=== PATIENT | female | born 1985 | race Caucasian/White ===

== ENCOUNTER 2016-04-05 21:15 | Inpatient (IN) | payer OTHER ==
--- NOTE | 2016-04-05 22:43 | US ---
EXAMINATION TYPE: US OB >= 14 wk fetus DATE OF EXAM: 04/05/2016 10:19 PM COMPARISON: None CLINICAL HISTORY: unknown age, no care TECHNIQUE: Transabdominal (TA) GESTATIONAL AGE / DATING Physician Established: Not established Dates by LMP: Unknown Dates by First Scan: No previous Dates by Current Scan: (36 weeks/3 days) EDC: 04/30/2016 SURVEY IUP: Single PLACENTA: Anterior PREVIA: No Previa VONNIE: 2.1 cm Oligohydramnios CERVICAL LENGTH (transabdominal: norm > 3.0cm): Unable to visualize cervix on this exam due to position BIOMETRY PRESENTATION: Vertex LIE: Longitudinal BPD: 9.2 cm 37 weeks / 4 days HC: 32.7 cm 37 weeks / 1 days AC: 33.4 cm 37 weeks / 3 days FL: 7.0 cm 35 weeks / 6 days ESTIMATED WEIGHT IN GRAMS: 3092 grams ESTIMATED WEIGHT IN LBS/OZS: 6 lbs. 13 oz. HC/AC: 0.98 Normal FL/AC: 20.92 Normal HEART RATE: 136 bpm RHYTHM: Normal TECHNOLOGIST IMPRESSION: Viable IUP with an SHAYLEE of 04/30/2016. Oligohydramnios IMPRESSION: Evidence of single live intrauterine of estimated gestational age of 36 weeks and 3 days wi th SHAYLEE of 04/30/2016. heart rate is 1 36 bpm. THERE IS OLIGOHYDRAMNIOS WITH VONNIE OF 2.16. Cervix is not well visualized. Vertex presentation. A phone report is given to Christen the nurse on the floor at the time of the dictation.
[2016-04-05 22:44] LABS: Basophils # (A) 0.1 k/uL (0-0.2); Basophils % (A) 0 %; CH 28.9; CHCM 32.6; Eosinophils # (A) 0.2 k/uL (0-0.7); Eosinophils % (A) 2 %; HCT 29.9 % (34.0-46.0); HDW 3.07; HGB 9.7 gm/dL (11.4-16.0); Luc # (Auto) 0.33; Luc % (Auto) 3; Lymphocytes # (A) 2.2 k/uL (1.0-4.8); Lymphocytes % (A) 20 %; MCH 28.8 pg (25.0-35.0); MCHC 32.4 g/dL (31.0-37.0); MCV 89.1 fL (80.0-100.0); Mean Platelet Volume 7.3; Monocytes # (A) 0.6 k/uL (0-1.0); Monocytes % (A) 5 %; Neutrophils # (A) 7.6 k/uL (1.3-7.7); Neutrophils % (A) 69 %; RBC 3.36 m/uL (3.80-5.40); RDW 13.9 % (11.5-15.5); WBC 10.9 k/uL (3.8-10.6)
[2016-04-05] MEDS ORDERED: OXYTOCIN 10 UNIT/ML 1 ML VIAL IM PRN (22:54)
[2016-04-05] MEDS ORDERED: TERBUTALINE 1 MG/ML VIAL SQ PRN (22:54)
[2016-04-05] MEDS ORDERED: METHYLERGONOVINE 0.2 MG/ML 1 ML AMP IM PRN (22:54)
[2016-04-05] MEDS ORDERED: LIDOCAINE 1% (PF) 10 MG/ML (30 ML SDV) SQ PRN (22:54)
[2016-04-05] MEDS ORDERED: CARBOPROST TROMETHAMINE 250 MCG/ML 1 ML AMP IM PRN (22:54)
[2016-04-05] MEDS ORDERED: AMPICILLIN 2,000 MG in SODIUM CHLORIDE 0.9% 100 ML IVPB STA (22:54)
[2016-04-05] MEDS: LACTATED RINGERS 1,000 ML IV SCH ×2 (23:11→23:46)
[2016-04-05] MEDS ORDERED: fentaNYL (PF) 50 MCG/ML 5 ML AMP ONE (23:25)
[2016-04-05] MEDS ORDERED: BUPIVACAINE (PF) 0.25% 30 ML VIAL ONE (23:25)
[2016-04-05] MEDS ORDERED: SODIUM CHLORIDE 0.9% 100 ML BAG ONE (23:25)
--- NOTE | 2016-04-05 23:27 | P.HPOB ---
History of Present Illness H&P Date: 04/05/16 Chief Complaint: Pain and This patient is a 30-year-old 5 para 1 female with no care who presents to labor and delivery with complaints of pain. Patient states that basically she was in denial of her and did not seek any care. Patient states that she's been taking [place] for a diagnosis of endometriosis by Dr. Adrian. I asked her if the physician new if she was that was prescribing this medication, and she states that she did not tell the physician and basically just called in to get a prescription. This physician apparently is done 2 laparoscopies on the patient and diagnosed her with endometriosis is given her pain medications for this treatment. Patient does not want this and has no intention of keeping the baby at this time. She does have a history of a previous term vaginal delivery that I have no records. Patient states that baby was 7 lbs. 4 oz. and was a uncomplicated vaginal delivery. Ultrasound this evening shows a 36-1/2 week intrauterine , vertex presentation, with an amniotic fluid index of 2, consistent with oligohydramnios. Review of Systems Constitutional: Denies chills, Denies fever Ears, nose, mouth and throat: Denies headache, Denies sore throat Cardiovascular: Denies chest pain, Denies shortness of breath Respiratory: Denies cough Gastrointestinal: Denies abdominal pain, Denies diarrhea, Denies nausea, Denies vomiting Genitourinary: Reports as per HPI Menstruation: Reports amenorrhea Musculoskeletal: Denies myalgias Integumentary: Denies pruritus, Denies rash Neurological: Denies numbness, Denies weakness Psychiatric: Denies anxiety, Denies depression Endocrine: Denies fatigue, Denies weight change Past Medical History Additional Past Medical History / Comment(s): Endometriosis. History of Any Multi-Drug Resistant Organisms: None Reported Additional Past Surgical History / Comment(s): Laparoscopy 2 Past Anesthesia/Blood Transfusion Reactions: No Reported Reaction Past Psychological History: No Psychological Hx Reported Smoking Status: Current every day smoker Past Drug Use History: Prescription Drug Abuse Medications and Allergies Home Medications Medication Instructions Recorded Confirmed Type HYDROcodone/APAP 7.5-325MG [[place] PO PRN 04/05/16 History 7.5-325] Allergies Allergy/AdvReac Type Severity Reaction Status Date / Time codeine AdvReac Hallucinati Verified 04/05/16 21:33 ons Exam - Vital Signs Vital signs: Intake and Output 04/05/16 04/05/16 04/06/16 14:59 22:59 06:59 Other: Weight 70.632 kg Patient Weight 04/06/16 06:59 Weight 70.632 kg - OBG Physical Exam Abdomen: bowel sounds normal, no diffuse tenderness, no bruit present, no guarding noted, no hepatomegaly, no splenomegaly, no mass Vulva: both: normal Vagina: normal moisture, no discharge Cervix: Cervix is 7 cm dilated. Artificial rupture membranes shows a small amount of clear fluid. Uterus: enlarged (Fundal height is consistent with a 36 weeks gestation) Results battery has been ordered and is pending. Tox screen is pending. Ultrasound shows a intrauterine approximately 36-1/2 weeks with oligohydramnios. Result Diagrams: 04/05/16 22:22 Abnormal Lab Results - Last 24 Hours (Table) 04/05/16 Range/Units 22:22 WBC 10.9 H (3.8-10.6) k/uL RBC 3.36 L (3.80-5.40) m/uL Hgb 9.7 L (11.4-16.0) gm/dL Hct 29.9 L (34.0-46.0) % Assessment and Plan (1) Third trimester Narrative/Plan: This is a 30-year-old 5 para 1 female 36-1/2 weeks gestation based on ultrasound today with no care in active labor. Patient also has prescription drug abuse. Patient has no intention at this time of keeping the baby. Plan is to check a panel, urine drug screen, allow epidural pain control as desired, and anticipate vaginal delivery. guest services director will also be contacted for evaluation of infant placement and care. Status: Acute (2) No care in current Status: Acute (3) Prescription drug abuse Status: Acute (4) Oligohydramnios Status: Acute (5) Normal labor Status: Acute
[2016-04-06 00:25] LABS: Hepatitis B Surface Ag Index 0.04
[2016-04-06 02:27] VITALS: BMI 26.7
[2016-04-06] MEDS ORDERED: AMPICILLIN 1,000 MG in SODIUM CHLORIDE 0.9% 50 ML IVPB SCH (03:00)
[2016-04-06] MEDS ORDERED: diphenhydrAMINE 50 MG/ML 1 ML VIAL IVP PRN (03:17)
[2016-04-06] MEDS ORDERED: ACETAMINOPHEN TAB 325 MG TAB PO PRN (03:17)
[2016-04-06] MEDS ORDERED: diphenhydrAMINE 25 MG CAP PO PRN (03:17)
[2016-04-06] MEDS ORDERED: BENZOCAINE/MENTHOL SPRAY 1 GM/SPRAY AEROSOL TOPICAL PRN (03:17)
[2016-04-06] MEDS ORDERED: ZOLPIDEM 5 MG TAB PO PRN (03:17)
[2016-04-06] MEDS ORDERED: SIMETHICONE 80 MG CHEWABLE PO PRN (03:17)
[2016-04-06] MEDS ORDERED: WITCH HAZEL 1 EACH MED..PAD TOPICAL PRN (03:17)
[2016-04-06] MEDS ORDERED: LANOLIN CREAM 5 GM TUBE TOPICAL PRN (03:17)
[2016-04-06] MEDS ORDERED: HYDROCORTISONE 2.5% RECTAL CREAM 30 GM TUBE RECTAL PRN (03:17)
[2016-04-06] MEDS ORDERED: IBUPROFEN 600 MG TAB PO PRN (03:17)
--- NOTE | 2016-04-06 03:22 | P.PROBDLV ---
Vaginal Delivery Note - . Vaginal Delivery Note: Normal spontaneous vaginal delivery viable male infant Apgars 8 and 9 delivery time is 0248 hours. Please see dictated H&P for intimate details of this patient's admission. Brief summary this is a 30-year-old 5 para 1 female unknown gestational age with no care who presented to labor and delivery with complaint of pain. Patient ultrasound which put the babies estimated gestational age at 36-1 /2 weeks and she was found to be in active labor. Patient has artificial rupture membranes at 7 cm for clear fluid. She does get an epidural for pain control. Patient's labor progresses quickly she gets to complete. Patient this time loses complete control and pushes uncontrollably. I attempted to support the perineum but she delivers entire fetus with 1 push over the perineum. This is a vigorous viable male infant Apgars are 8 and 9. has spontaneous respirations and good cry. Infant appears grossly normal. After delivery of the infant the umbilical cord is doubly clamped and cut it appears to be trivascular. Patient requests not to the baby and therefore is taken immediately to the nursery. Placenta spontaneously delivered intact. Inspection of the perineum of the right hand side shows a complete disruption of the right labia with a defect about 1-2 cm through the labia. This is secondary to the patient pushing without control. Using a 4-0 Vicryl I reapproximate the defect in the labia. The rest of the labial defect is then repaired with 3-0 Vicryl. Excellent reapproximation is noted appears to be intact. She does have a small laceration of left vaginal area where I put a [id number] stitch of 3-0 Vicryl. Final inspection shows complete reapproximation of all defects. Estimated blood loss is 100 mL. There are no other complications. All counts are correct 3.
[2016-04-06] MEDS ORDERED: OXYTOCIN 30 UNITS/500 ML NS 30 UNIT in SALINE 1 500ML.BAG IV SCH (03:30)
[2016-04-06] MEDS: HYDROcodone/APAP 7.5-325MG 1 EACH TAB PO PRN ×3 (03:49→13:07)
--- NOTE | 2016-04-06 06:07 | P.PNOBGVD ---
Subjective - Subjective Patient reports: Reports appetite normal, Reports voiding normally, Reports pain well controlled, Reports ambulating normally : doing well Objective - Latest Vital Signs Latest vital signs: Vital Signs Temp Pulse Resp BP 04/06/16 05:15 77 14 106/59 04/06/16 04:40 98.1 F 83 14 108/67 04/06/16 04:10 78 14 112/63 04/06/16 03:55 97.8 F 78 14 115/66 04/06/16 03:40 97.7 F 104 H 16 118/65 04/06/16 03:25 88 16 106/57 04/06/16 03:10 97.3 F L 90 16 120/73 04/05/16 22:47 97.2 F L 78 16 135/79 Intake and Output 04/05/16 04/05/16 04/06/16 14:59 22:59 06:59 Output Total 150 Balance -150 Output: Estimated Blood Loss 150 Other: # Voids 1 Weight 70.632 kg Patient Weight 04/06/16 06:59 Weight 70.632 kg - Exam Lungs: bilateral: normal Chest: Normal S1, Normal S2 Extremities: Present: normal Abdomen: Present: normal appearance, soft Uterus: Present: normal, firm - Labs Labs: Abnormal Lab Results - Last 24 Hours (Table) 04/05/16 04/05/16 Range/Units 21:30 22:22 WBC 10.9 H (3.8-10.6) k/uL RBC 3.36 L (3.80-5.40) m/uL Hgb 9.7 L (11.4-16.0) gm/dL Hct 29.9 L (34.0-46.0) % Urine Opiates Screen Detected H (NotDetected) Ur Oxycodone Screen Detected H (NotDetected) Assessment and Plan (1) Third trimester Narrative/Plan: Patient is resting this morning without complaints. She is giving her baby up for adoption and therefore wishes to go home later today. Vital signs are stable she is afebrile. Uterus is firm nontender she's having normal lochia. My impression she is stable for discharge if she wishes to go home later today. Follow up with me or her primary JUSTICE COURT JUDGE in 6 weeks. I did have a discussion with her today about her prescription narcotic use and recommended she discuss alternative methods with her prescribing physician. Current Visit: Yes Status: Acute Code(s): Z33.1 - STATE, INCIDENTAL SNOMED Code(s): 19761718 (2) No care in current Current Visit: Yes Status: Acute Code(s): O09.30 - SUPRVSN OF PREG W INSUFFICIENT ANTENAT CARE, UNSP TRIMESTER SNOMED Code(s): 4522309282075 (3) Prescription drug abuse Current Visit: Yes Status: Acute Code(s): HEN5122 - SNOMED Code(s): 42416984 (4) Oligohydramnios Current Visit: Yes Status: Acute Code(s): O41.00X0 - OLIGOHYDRAMNIOS, UNSP TRIMESTER, NOT APPLICABLE OR UNSP SNOMED Code(s): 92875444 (5) Normal labor Current Visit: Yes Status: Acute Code(s): O80 - ENCOUNTER FOR FULL-TERM UNCOMPLICATED DELIVERY; Z37.9 - OUTCOME OF DELIVERY, UNSPECIFIED SNOMED Code(s ): 64222551
--- NOTE | 2016-04-06 06:13 | P.DS ---
Providers Date of admission: 04/05/16 22:25 Expected date of discharge: 04/06/16 Attending physician: Moe So Primary care physician: Moe So - Discharge Diagnosis(es) (1) Third trimester Current Visit: Yes Status: Acute (2) No care in current Current Visit: Yes Status: Acute (3) Prescription drug abuse Current Visit: Yes Status: Acute (4) Oligohydramnios Current Visit: Yes Status: Acute (5) Normal labor Current Visit: Yes Status: Acute Hospital Course: Please see dictated H&P on this patient's admission. Brief summary this is a 30 -year-old 5 para 1 female unknown gestation with no care who presents to labor and delivery in early labor. Patient was on have a vaginal delivery viable male . Patient does not wish to keep this baby and is supposedly given up for adoption. Later in the day patient is requesting to go home. I did feel she is stable for discharge home follow up with me or her primary physician in 6 weeks. I also discussed prescription narcotic abuse and recommended discussing alternative methods of treatment with her prescribing physician. Patient's call she has any fever, chills, excessive vaginal bleeding , and/or abdominal pain. Procedures: Normal spontaneous vaginal delivery Patient Condition at Discharge: Good Plan - Discharge Summary New Discharge Prescriptions: HYDROcodone/APAP 7.5-325MG [[place] 7.5-325] 1 each PO Q6H PRN #30 tab PRN Reason: Pain Ibuprofen [Motrin] 600 mg PO Q6HR PRN #40 tab PRN Reason: Mild Pain Or Fever >= 100.5 Discharge Medication List HYDROcodone/APAP 7.5-325MG [[place] 7.5-325] PO PRN 04/05/16 [History] HYDROcodone/APAP 7.5-325MG [[place] 7.5-325] 1 each PO Q6H PRN #30 tab 04/06/16 [ Rx] Ibuprofen [Motrin] 600 mg PO Q6HR PRN #40 tab 04/06/16 [Rx] Follow up Appointment(s)/Referral(s): Moe So MD [Primary Care Provider] - 6 Weeks Patient Instructions/Handouts: Vaginal Delivery (DC) Activity/Diet/Wound Care/Special Instructions: No intercourse or anything per vagina for 6 weeks. Please call if any fever, chills, excessive vaginal bleeding, and/or abdominal pain Discharge Disposition: HOME SELF-CARE
[2016-04-06] MEDS ORDERED: BUPIVACAINE (PF) 0.25% 25 ML, fentaNYL (PF) 200 MCG in SODIUM CHLORIDE 0.9% 71 ML EPIDURAL ONE (07:56)
[2016-04-06] MEDS ORDERED: SENNOSIDES-DOCUSATE SODIUM 1 EACH TAB PO SCH (08:00)
[2016-04-06 08:25] VITALS: BP 105/60; PULSE 89; RESP 16; TEMP 98.4
[2016-04-06] MEDS ORDERED: MEASLES-MUMPS-RUBELLA VACC/PF 12,500 UNIT/0.5 ML VIAL SQ ONE (11:24)
[2016-04-07 07:55] LABS: HIV-1/HIV-2 Ab Screen NONREAC (NON REAC)
== END 2016-04-06 14:35 | disposition home or self-care (01) | DRG 775 ==
LOC: FBPOP 21:15 → 4FBP 22:25
PROVIDERS: ADMIT Obstetrics & Gynecology; ATTEND Obstetrics & Gynecology
PROC: 10E0XZZ Delivery of Products of Conception, External Approach (ICD-10-PCS; principal; 2016-04-06)
PROC: 0TQDXZZ Repair Urethra, External Approach (ICD-10-PCS; 2016-04-06)
PROC: 10907ZC Drainage of Amniotic Fluid, Therapeutic from Products of Conception, Via Natural or Artificial Opening (ICD-10-PCS; 2016-04-06)
PROC: 00HU33Z Insertion of Infusion Device into Spinal Canal, Percutaneous Approach (ICD-10-PCS; 2016-04-06)
DX: O41.00X0 Oligohydramnios, unspecified trimester, not applicable or unspecified (principal); F17.200 Nicotine dependence, unspecified, uncomplicated; O99.334 Smoking (tobacco) complicating childbirth; O70.0 First degree perineal laceration during delivery; O75.89 Other specified complications of labor and delivery; F19.10 Other psychoactive substance abuse, uncomplicated; Z3A.36 36 weeks gestation of pregnancy; Z37.0 Single live birth; N80.9 Endometriosis, unspecified; Z88.5 Allergy status to narcotic agent; Z62.0 Inadequate parental supervision and control
CPT/HCPCS: 59025; 76805; 80306; 85025; 86762; 86780; 86900; 86901; 87340; 87389; 88307; 90707; 99213